=== PATIENT | female | born 1995 | race Caucasian/White ===

== ENCOUNTER 2019-01-13 10:39 | Emergency (ER) | payer BC, SELFPAY ==
[2019-01-13 10:40] VITALS: BP 157/90; PULSE 105; RESP 16; TEMP 36.4; O2SAT 100; BMI 49.1
--- NOTE | 2019-01-13 10:52 | RAD_ITS ---
STUDY: X-RAY - LEFT ANKLE REASON FOR EXAM: Female, 23 years old. Ankle pain TECHNIQUE: 3 view(s) of the ankle. COMPARISON: None. FINDINGS: Normal visualized distal tibia and fibula. Normal medial and lateral malleoli. Normal tibiotalar articulation and ankle mortise. Normal visualized talus and calcaneus. The visualized subtalar, talonavicular, calcaneocuboid and tarsal articulations are normal. The soft tissue structures are unremarkable. RAD/Ankle min 3 Views IMPRESSION: Normal x-ray examination of the ankle. Electronically Signed: Chidi Vinson DO at 11:20 EDT Tel , Service support ,
--- NOTE | 2019-01-13 10:54 | ED.DCSUM_ITS ---
- ER Visit Summary Date of Service: 01/13/19 Chief Complaint: Ankle injury History of Present Illness: The patient is a 23 F who presents the emergency room with left ankle pain. Patient states that last night around 20 to 30 hours she jumped out of bed but forgot that her bed is now 3 feet off the ground as compared to on the floor. She states that she fell down injuring her left ankle. She notes swelling. She states that she was able to work on it last night but was very painful. Denies any other illnesses. Physical Examination: Afebrile vital signs are stable The left ankle demonstrates tenderness and swelling of the lateral malleolus. There is no fifth metatarsal or fibular head pain. Negative Moses's test. No breaks in the skin. Neurovascular intact. Test Results: Ankle films were obtained. These were negative for fracture. Emergency Department Course and Treatment: Was placed in Neil wrap. Rice therapy. Follow-up primary care 10 to 14 days if not improving Impression: 1. Left ankle sprain This note was generated with [employer] dictation software. It may contain incorrect words, spelling, and punctuation that were not noted in review of the chart prior to signing ED Disposition - Plan for ED Patient: Disposition: Home or Assisted Living Instructions: Sprain, Ankle, with X-Ray Additional Instructions: Follow-up with your primary care doctor in 10 to 14 days if not improved
[2019-01-13 11:48] VITALS: RESP 14
== END 2019-01-13 11:49 | disposition home or self-care (01) ==
PROVIDERS: Emergency Provider Emergency Medicine
DX: S93.402A Sprain of unspecified ligament of left ankle, initial encounter (principal); W06.XXXA Fall from bed, initial encounter; Y93.39 Activity, other involving climbing, rappelling and jumping off; Y92.9 Unspecified place or not applicable; E66.9 Obesity, unspecified; Z87.891 Personal history of nicotine dependence
CPT/HCPCS: 73610; 99282

== ENCOUNTER 2024-01-25 01:56 | Emergency (ER) | payer OTHER, SELFPAY ==
[2024-01-25 01:57] VITALS: BP 161/117; BP 171/115; PULSE 117; RESP 16; TEMP 36.9; O2SAT 100; BMI 57.9
--- NOTE | 2024-01-25 02:15 | EDS_ITS ---
HPI HPI - URI History of Present Illness Chief Complaint: Cold Sx Informant: patient Onset/Context/Timing Timing: Continuous Current Severity: Mild Maximum Severity: Mild Associated Symptoms Associated Symptoms: Positive for Nasal Congestion, Sinus Pressure, Myalgias and Productive Cough (Clear sputum.) Narrative Narrative: 28-year-old female no stated past medical history. Non-smoker. Said for 2 weeks has had primarily clear to yellowish nasal drainage. Was seen in urgent care started on Augmentin twice a day for the last 4 days. Initially had some right ear pain is improved. Now she has a cough. Primarily nonproductive at times clear sputum. No hemoptysis. Prior similar symptoms: Yes Recent Illness/Hospitalization: No ROS ROS ED ROS Narrative Cough. Nasal drainage. Sinus pain. Constitutional Constitutional ED: Denies chills or fever(s) Eyes Eyes: Denies blurry vision ENT ENT ED: Reports ear pain, rhinorrhea and sore throat Cardiovascular Cardiovascular: Denies chest pain Respiratory/Chest Respiratory/Chest: Reports cough Gastrointestinal Gastrointestinal: Denies abdominal pain Genitourinary Genitourinary ED: Denies dysuria Musculoskeletal Musculoskeletal: Denies arthralgias Integumentary Denies abscess Neurologic Neurologic: Denies headache(s) Psychiatric Psychiatric: Denies anxiety Hematologic/Lymphatic Hematologic/Lymphatic: Denies easy bleeding Allergic/Immunologic Allergic/Immunologic ED: Denies mouth swelling PFSH PFSH Medical History no medical history no medical history Home Medications ?Medication ?Instructions ?Recorded ?Last Taken ?Type amoxicillin 875 mg-potassium 1 tab PO BID 01/25/24 Unknown History clavulanate 125 mg tablet loratadine 10 mg tablet 10 mg PO DAILY 01/25/24 Unknown History Allergy/AdvReac Type Severity Reaction Status Date / Time amoxicillin trihydrate (From Allergy Unknown Verified 01/25/24 02:01 Augmentin) azithromycin Allergy Unknown Verified 01/25/24 02:01 doxycycline Allergy Unknown Verified 01/25/24 02:01 ketorolac tromethamine (From Allergy Unknown Verified 01/25/24 02:01 Toradol) niacin Allergy Swelling Verified 01/25/24 02:01 nystatin Allergy Unknown Verified 01/25/24 02:01 oxaprozin Allergy NEEDS Verified 01/25/24 02:01 FOLLOW-UP potassium clavulanate (From Allergy Unknown Verified 01/25/24 02:01 Augmentin) Social History Smoking Status: Former smoker EXAM Physical Exam Narrative Exam Narrative: Well-appearing 28-year-old female. Vital signs stable afebrile. Initial blood pressure 171/115. No history of hypertension. H EENT exam TMs normal bilaterally. Posterior pharynx normal. Frontal sinus tenderness. No purulent discharge. No trouble swallowing or breathing. Neck nontender no lymphadenopathy. No meningismus. Lungs clear to auscultation bilaterally. Dry cough. No rales, rhonchi nor wheezing. Equal symmetrical. No distress. Heart tachycardic 110 no murmur. Abdomen soft nontender. Moving all 4 extremities. Nontender no edema. Neurologically patient's awake alert no focal motor deficits. Answer questions following commands. Benign exam. Const Vital Signs: 01/25/24 01:57 01/25/24 01:57 01/25/24 02:03 Temperature 98.4 F Temperature Source Oral Pulse Rate 117 H Respiratory Rate 16 Respiratory Pattern Normal Blood Pressure 171/115 H 161/117 H Blood Pressure Mean 133 131 Pulse Ox 100 Oxygen Delivery Method Room Air Positive well nourished and well developed; Negative for cachectic or contractures General Appearance ED: well developed and NAD; Negative for cachectic, contractures, cyanotic, diaphoretic or pallor Nutritional Appearance: Negative for cachectic HEENT Reports moist mucous membranes normocephalic and atraumatic Face and Sinus: sinus tenderness and facial tenderness; Negative for maxillary instability Throat: posterior oropharynx normal Eyes PERRL and EOMs intact bilaterally General Eye ED: Negative for pale conjunctiva or scleral icterus Neck no lymphadenopathy, supple, no meningeal signs and no JVD General: Negative for anterior neck swelling or lymphadenopathy Resp normal respiratory effort and clear to auscultation bilaterally Effort and Inspection: Negative for retractions Auscultation: Negative for rales, rhonchi or wheezes Cardio S1 normal heart sound, S2 normal heart sound and no murmurs Rate: tachycardic Rhythm: regular rhythm; Negative for abnormal rhythm GI non-tender, non-distended and no masses Auscultation: normoactive bowel sounds Palpation: soft; Negative for tender or guarding Back/Spine no CVA tenderness and normal ROM Extremity normal to inspection and full ROM Neuro oriented x3 and CN's II-XII intact bilaterally Sensorium / Orientation: alert, oriented to person, oriented to place and oriented to time; Negative for orientation impaired or lethargic Motor Exam: strength 5/5 throughout Psych mental status grossly normal Attitude: No agitated Mood & Affect: Negative for depressed, anxious or tearful Skin General Skin Exam: Negative for jaundice or pallor Lesions: no lesions Rashes: no rashes MDM MDM MDM Narrative Medical decision making narrative: Patient with URI symptoms. Started on Augmentin 4 days ago. Lungs are clear. She does not need any labs or x-rays. We also discussed her elevated blood pressure tonight. She typically does not have high blood pressure. She is never been treated for in the past. They know when she is feeling better to have it rechecked if it persist she will need further evaluation. At this time she would not be started on blood pressure medication. History & Record Review Discussion w/independent historian: Patient and Family Additional record(s) reviewed:: Prior inpatient record, Prior outpatient record, Prior ED visit and Prior labs Discharge Plan Triage Chief Complaint: Cold Sx ED Provider: Lv Song Dx/Rx/DC Orders Clinical Impression: Respiratory tract infection, Laryngitis Instructions: ED Upper Resp Infec Abx Tx Prescriptions: No Action loratadine 10 mg tablet 10 mg PO DAILY amoxicillin-pot clavulanate 875-125 mg tablet 1 tab PO BID Primary Care Provider: Care Physician,No Primary Referrals: Senthil Hager MD [Med Staff - Admissions Counselor] - As Needed Care Physician,No Primary [Primary Care Provider] - Activity Restrictions/Additional Instructions: Plenty of fluids and rest. Motrin and Tylenol for fever and bodyaches. [id number] cough syrup. Follow-up with your doctor if not improving or. Finish your current antibiotic. The antibiotic Augmentin will cover a sinus infection, pneumonia and/or bronc hitis. Print Language: Romanian Disposition Disposition: Home, Self Care
== END 2024-01-25 02:27 | disposition home or self-care (01) ==
PROVIDERS: Emergency Provider Emergency Medicine; PCP Student in an Organized Health Care Education/Training Program; Visit Provider Emergency Medicine
DX: J04.0 Acute laryngitis (principal); J98.8 Other specified respiratory disorders; Z87.891 Personal history of nicotine dependence
CPT/HCPCS: 99282